=== PATIENT | female | born 1980 | race Caucasian/White ===

== ENCOUNTER → 2017-03-24 | Emergency (ER) | payer OTHER ==
[~2017-03-24] VITALS: Ht 162.6 cm; Wt 55.3 kg
[~2017-03-24] MED LIST: ANTICONCEPTIVOS; CEFUROXIME500 MG PO; URIN D.S. TABL1 EACH PO
== END | disposition home or self-care (01) ==
LOC: ER 20:49
DX: N30.80 Other cystitis without hematuria (principal)

== ENCOUNTER 2020-04-06 22:39 | Emergency (ER) | payer OTHER ==
[~2020-04-06] VITALS: Ht 162.6 cm; Wt 58.1 kg
[2020-04-06] MEDS ORDERED: PRENA1 TRUE CO1 EACH (23:01)
[2020-04-07] MEDS ORDERED: ACETAMINOPHEN500 M1 PO (07:07)
== END 2020-04-07 07:44 | disposition home or self-care (01) ==
LOC: ER 22:39
DX: O26.891 Other specified pregnancy related conditions, first trimester (principal); M54.5 Low back pain; O34.81 Maternal care for other abnormalities of pelvic organs, first trimester; N83.292 Other ovarian cyst, left side; Z3A.08 8 weeks gestation of pregnancy; Z20.828 Contact with and (suspected) exposure to other viral communicable diseases

== ENCOUNTER 2020-10-29 12:00 | Inpatient (IN) | payer OTHER ==
[~2020-10-29] VITALS: Ht 162.6 cm; Wt 71.7 kg
[~2020-10-29 12:00] MED LIST changes: +ACETAMINOPHEN500 M1 PO; +PRENA1 TRUE CO1 EACH
[2020-11-08] MEDS ORDERED: LANSOPRAZOLE30 MG (08:52)
[2020-11-08] MEDS ORDERED: INTEGRA F CAPS1 EAC1 (08:52)
[2020-11-09] MEDS ORDERED: OXYC1TAB9 PO (10:10)
[2020-11-09] MEDS ORDERED: KETO10TA2 PO (10:10)
== END 2020-11-09 13:45 | disposition home or self-care (01) | DRG 807 ==
LOC: ADM 12:00 → EDSTATUS 12:00 → LDR 11-07 01:16 → OB/GYN 11-07 01:16 → LDR 11-07 01:22 → OB/GYN 11-07 04:01 → SURG-SUITE 11-07 14:31 → OB/GYN 11-18 12:00
PROVIDERS: ADMIT Obstetrics & Gynecology Maternal & Fetal Medicine; ATTEND Obstetrics & Gynecology Maternal & Fetal Medicine
PROC: 10E0XZZ Delivery of Products of Conception, External Approach (ICD-10-PCS; principal; 2020-11-07)
PROC: 0KQM0ZZ Repair Perineum Muscle, Open Approach (ICD-10-PCS; 2020-11-07)
PROC: 4A1HXFZ Monitoring of Products of Conception, Cardiac Rhythm, External Approach (ICD-10-PCS; 2020-11-07)
PROC: 10907ZC Drainage of Amniotic Fluid, Therapeutic from Products of Conception, Via Natural or Artificial Opening (ICD-10-PCS; 2020-11-07)
DX: O70.1 Second degree perineal laceration during delivery (principal); Z37.0 Single live birth; Z3A.38 38 weeks gestation of pregnancy; Z20.822 Contact with and (suspected) exposure to COVID-19

== ENCOUNTER 2023-02-08 11:20 | Day surgery (SDC) | payer OTHER ==
[2023-02-05 13:36] LABS: HEMOGLOBIN 13.2 g/dL (12.0-15.00); MEAN CELL VOLUME 91.5 fL (80.00-100.00); MEAN CORPUSCULAR HGB CONC 33.9 g/dl (32.0-36.0); PLATELET COUNT 183 K/uL (150-450); RED BLOOD COUNT 4.26 M/uL (4.00-6.00); RED CELL DISTRIBUTION WIDTH 13.7 % (11.5-14.5)
[2023-02-05 14:28] LABS: INR 0.95; PARTIAL THROMBOPLASTIN TIME 26.3 SECONDS (22.0-34.0)
[~2023-02-08 11:20] MED LIST changes: +INTEGRA F CAPS1 EAC1; +KETO10TA2 PO; +LANSOPRAZOLE30 MG; +OXYC1TAB9 PO; +PROP PO
== END 2023-02-08 22:35 | disposition home or self-care (01) ==
LOC: CIR.AMB 11:20
PROVIDERS: ATTEND Obstetrics & Gynecology Maternal & Fetal Medicine
DX: O02.1 Missed abortion (principal); O72.2 Delayed and secondary postpartum hemorrhage; Z88.6 Allergy status to analgesic agent; Z20.822 Contact with and (suspected) exposure to COVID-19

== ENCOUNTER 2023-12-31 09:25 | Outpatient (CLI) | payer OTHER ==
[~2023-12-31 09:25] MED LIST changes: +INDERAL XL80 MG PO
== END 2023-12-31 09:26 | disposition home or self-care (01) ==
LOC: PRENATAL 09:25
PROVIDERS: ATTEND Obstetrics & Gynecology Maternal & Fetal Medicine
DX: Z76.1 Encounter for health supervision and care of foundling (principal)